=== PATIENT | male | born 1990 | race Caucasian/White ===

== ENCOUNTER 2025-05-03 08:01 | Emergency (ER) | payer BC, SELFPAY ==
[2025-05-03 08:17] VITALS: BP 126/82; PULSE 109; RESP 16; TEMP 36.6; O2SAT 98
[2025-05-03 08:38] LABS: EDCOVIDSCREEN Negative (Negative); EDINFLUASCREEN Negative (Negative); EDINFLUBSCREEN Negative (Negative)
--- NOTE | 2025-05-03 08:41 | ED_ITS ---
HPI - URI/Sore Throat General Chief Complaint: Upper Respiratory Infection Stated Complaint: ACHY/HOT & COLD/HEADACHE/NAUSEA Time Seen by Provider: 05/03/25 08:15 Source: patient and RN notes reviewed Mode of arrival: ambulatory Limitations: no limitations History of Present Illness HPI Narrative: 34-year-old male presents Express Care complaining of nausea, body aches, chills, headache since yesterday. Patient denies any upper respiratory symptoms, cough, fevers, vomiting, diarrhea, abdominal pain, chest pain difficulty breathing, wheezing and shortness of breath, no urinary symptoms, or any other symptoms. Patient said he has decreased appetite has been able keep fluids down, says he has not ate much due to the nausea. Patient has not tried any [id number] to help with symptoms. Patient denies any recent traveling, hiking, or any tick bites. Related Data Allergies Allergy/AdvReac Type Severity Reaction Status Date / Time amoxicillin Allergy hives and Verified 05/03/25 08:15 itching Review of Systems Review of Systems: CONSTITUTIONAL: Denies fever, or sweats. Positive for body aches and chills. EYES: Denies visual changes, redness, or discharge. ENT: Denies rhinorrhea, congestion, sore throat, or otalgia. CARDIOVASCULAR: Denies chest pain, palpitations, or edema. RESPIRATORY: Denies cough or dyspnea. GASTROINTESTINAL: Denies abdominal pain, vomiting, bloody stools, vomiting blood, or diarrhea. Positive for nausea. GENITOURINARY: Denies dysuria or hematuria. SKIN: Denies rash or itching. MUSCULOSKELETAL: Denies back pain, joint pain, or myalgia. NEUROLOGIC: Positive for headaches. Negative for numbness, or weakness. PSYCHIATRIC: Denies anxiety or depression. All other systems reviewed are negative, except as documented in HPI. [facility] Past Medical History Medical History Neck mass Gastritis Folliculitis Epididymitis Pre-syncope History of asthma History of gastroesophageal reflux (GERD) Surgical History Surgical History Hx of tonsillectomy as a child H/O myringotomy as a child Family History Family History Mother History of colon cancer Grandparent Diabetes mellitus Heart disease Cerebrovascular accident Cancer Social History Social History Smoking status: Never smoker Alcohol intake: current Substance use: never Living arrangements: alone Occupation/Education: occupation Additional occupation/education comments: sells rep Gender identity (if verbalized by the patient): Male Comments At the time of my signature, I reviewed and agree with the nursing past medical, surgical, social, and family history. There is no relevant family history pertinent to the patient complaint. Exam Narrative: GENERAL: This is a well-nourished, well-developed adult, in no apparent distress. They are non ill-appearing, nontoxic appearing. HEAD: normocephalic, atraumatic. EYES: Sclera clear/white. Conjunctiva normal. Vision is grossly intact. Extraocular movements intact EARS: External ears normal, auditory canals clear and without drainage, TMs normal without perforation. Hearing grossly intact. NOSE: External nose normal with no obvious nasal discharge, nasal turbinates without redness, no rhinorrhea. THROAT: Mucous membranes moist, posterior pharynx clear, without erythema or swelling. Uvula midline. NECK: Neck supple, non-tender without lymphadenopathy, masses or thyromegaly. CARDIOVASCULAR: Regular rate and rhythm without murmurs, gallops, or rubs. RESPIRATORY: Clear to auscultation. Breath sounds equal bilaterally. No wheezes, rales, or rhonchi. GASTROINTESTINAL: Abdomen soft, non-tender, nondistended. Bowel sounds are active. No hepato-splenomegaly, or palpable masses. No guarding or rigidity. SKIN: warm, Dry, intact with no suspicious lesions or rash, good texture and turgor. NEURO: awake, alert, and oriented to person, place and time. There were no obvious focal neurologic abnormalities. EXTREMITIES: No joint tenderness, effusion, or edema noted. Course Course Emergency Course: Portions of this record may have been created with voice recognition software Level of Care: Express Care Visit Vital Signs Vital signs: Vital Signs Temperature 97.8 F 05/03/25 08:17 Pulse Rate 109 H 05/03/25 08:17 Respiratory Rate 16 05/03/25 08:17 Blood Pressure 126/82 05/03/25 08:17 Pulse Oximetry 98 05/03/25 08:17 Temperature 97.8 F 05/03/25 08:17 Pulse Rate 109 H 05/03/25 08:17 Respiratory Rate 16 05/03/25 08:17 Blood Pressure 126/82 05/03/25 08:17 Pulse Oximetry 98 05/03/25 08:17 Reviewed MDM - URI/Sore Throat MDM Narrative Medical decision making narrative: Rapid COVID and flu were negative. No evidence of upper respiratory infection on exam, no peritoneal findings. No abdominal tenderness. Likely patient has start of a viral illness. Patient denies any recent hiking/traveling or being bit by a tick.. Discussed supportive therapy. Will prescribe Zofran as needed for nausea and vomiting. Discussed physical exam findings. Advised supportive measures and signs/symptoms to go to the ER. Pt is appropriate for outpt treatment and f/u. Differential Diagnosis Differential diagnosis: Likely upper respiratory infection, viral infection and other (Gastroenteritis) Lab Data Attestation: I reviewed the patient's lab results. Labs: Lab Results 05/03/25 Range/Units 08:37 POC Influenza A Ag Negative (Negative) POC Influenza B Ag Negative (Negative) POC SARS CoV-2 Ag Negative (Negative) Critical Care Time Critical Care Time Critical Care Time: No Discharge Plan Discharge Clinical Impression: Viral infection Patient Disposition: Home Condition: Stable Instructions: Viral Syndrome (ED) Additional Instructions: Your rapid COVID and flu were negative today. Viral illness may last between 7-today days; antibiotics do not cure viral illness and are NOT recommended at this time. Take Zofran as needed for nausea and vomiting. Also, recommend symptomatic treatment includes: rest, fluids, and increase humidity of the air at home. You may take ibuprofen 600 mg to 800 mg every 6-8 hours. Do not exceed more than 800 mg of ibuprofen per dose. Do not exceed more than 3200 mg ibuprofen in a day. You may take up to 1000 mg Tylenol every 6-8 hours. Do not exceed 1000 mg per dose, do exceed more than 4000 mg of Tylenol in a day. Please schedule a follow-up visit with your personal physician for further evaluation and treatment within 3-5days. Go to the ER if he develops severe abdominal pain, uncontrolled vomiting, bloody stools, chest pain, difficulty breathing, or any serious concerns. Patient Language: Setswana Prescriptions: New ondansetron 4 mg tablet,disintegrating 4 mg PO Q8H PRN (Reason: nausea and vomiting) Qty: 12 0RF Follow-up/Referrals: James,Marty Armenta MD [Primary Care Provider] Time of Disposition: 08:36
== END 2025-05-03 08:38 | disposition home or self-care (01) ==
PROVIDERS: PCP Family Medicine
DX: B34.9 Viral infection, unspecified (principal); Z20.822 Contact with and (suspected) exposure to COVID-19
CPT/HCPCS: 87426; 87804; 99213; G0463